=== PATIENT | female | born 1985 | race Caucasian/White ===

== ENCOUNTER 2018-05-15 21:32 | Emergency (ER) | payer OTHER ==
[~2018-05-15] VITALS: Ht 162.6 cm; Wt 79.4 kg
== END 2018-05-16 03:35 | disposition home or self-care (01) ==
LOC: ER 21:32
DX: O26.892 Other specified pregnancy related conditions, second trimester (principal); R10.2 Pelvic and perineal pain; Z34.82 Encounter for supervision of other normal pregnancy, second trimester

== ENCOUNTER → 2018-09-20 | Emergency (ER) | payer OTHER ==
[~2018-09-20] VITALS: Ht 160 cm; Wt 83.0 kg
[~2018-09-20] MED LIST: FOLIC ACID0.4 MG PO; PRENATAL + DHA1 EAC1 PO
== END | disposition still patient (30) ==
LOC: ER 21:51
DX: O46.8X3 Other antepartum hemorrhage, third trimester (principal); O26.893 Other specified pregnancy related conditions, third trimester; Z04.1 Encounter for examination and observation following transport accident; V49.88XA Car occupant (driver) (passenger) injured in other specified transport accidents, initial encounter; Y93.89 Activity, other specified; Y99.8 Other external cause status; Y92.488 Other paved roadways as the place of occurrence of the external cause

== ENCOUNTER 2020-01-13 11:58 | Emergency (ER) | payer OTHER ==
[~2020-01-13] VITALS: Ht 162.6 cm; Wt 63.5 kg
== END 2020-01-13 18:33 | disposition home or self-care (01) ==
LOC: ER 11:58
DX: K29.60 Other gastritis without bleeding (principal); E86.0 Dehydration; E87.8 Other disorders of electrolyte and fluid balance, not elsewhere classified

== ENCOUNTER 2023-11-07 15:45 | Outpatient (CLI) | payer OTHER ==
[~2023-11-07 15:45] MED LIST changes: +PRENATAL TABLE1 EACH PO
== END 2023-11-07 15:48 | disposition home or self-care (01) ==
LOC: PRENATAL 15:45
PROVIDERS: ATTEND Obstetrics & Gynecology Maternal & Fetal Medicine
DX: O35.3XX0 Maternal care for (suspected) damage to fetus from viral disease in mother, not applicable or unspecified (principal); O44.00 Complete placenta previa NOS or without hemorrhage, unspecified trimester; O09.529 Supervision of elderly multigravida, unspecified trimester; Z3A.22 22 weeks gestation of pregnancy